=== PATIENT | male | born 1940 | race Asian ===

== ENCOUNTER 2016-06-30 08:42 | Outpatient (CLI) | payer OTHER ==
[2016-06-30 09:13] LABS: PLATELET COUNT 191 K/uL (142-355)
[2016-06-30 09:36] LABS: POTASSIUM 3.9 mmol/L (3.6-5.2); SODIUM 137 mmol/L (136-145)
== END 2016-06-30 20:47 | disposition home or self-care (01) ==
LOC: LABW 08:42
PROVIDERS: Nurse Practitioner
DX: Z00.00 Encounter for general adult medical examination without abnormal findings (principal); I10 Essential (primary) hypertension; Z12.5 Encounter for screening for malignant neoplasm of prostate; E78.00 Pure hypercholesterolemia, unspecified
CPT/HCPCS: 36415; 80053; 80061; 84154; 85027

== ENCOUNTER 2017-01-19 09:31 | Outpatient (CLI) | payer OTHER | END 2017-01-19 20:00 | disposition home or self-care (01) | LOC: MRI 09:31 | DX: M79.604 Pain in right leg (principal); M54.17 Radiculopathy, lumbosacral region ==

== ENCOUNTER 2021-06-08 10:33 | Outpatient (CLI) | payer OTHER | END 2021-06-08 21:24 | disposition home or self-care (01) | LOC: LAB 10:33 | PROVIDERS: ATTEND Internal Medicine Gastroenterology | DX: K64.0 First degree hemorrhoids (principal) | CPT/HCPCS: 82272 ==

== ENCOUNTER → 2022-05-17 | Outpatient (CLI) | payer OTHER | LOC: US 14:47 | PROVIDERS: ATTEND Internal Medicine | DX: R60.0 Localized edema (principal); M79.605 Pain in left leg ==